=== PATIENT | female | born 1980 | race Caucasian/White ===

== ENCOUNTER 2018-08-20 17:45 | Emergency (ER) | payer OTHER ==
[~2018-08-20] VITALS: Ht 160 cm; Wt 65.0 kg
[2018-08-20] MEDS ORDERED: FAMOTIDINE 20 MG TABLET ONE (18:24)
[2018-08-20] MEDS ORDERED: FAMOTIDINE 20 MG TABLET PO ONE (18:30)
[2018-08-20] MEDS ORDERED: PLEASE ENTER ALLERGIES MC SCH (18:30)
[2018-08-20 20:00] VITALS: BP 114/71
== END 2018-08-20 20:40 | disposition home or self-care (01) ==
LOC: ED 18:47
DX: T78.2XXA Anaphylactic shock, unspecified, initial encounter (principal); T78.40XA Allergy, unspecified, initial encounter; Z90.710 Acquired absence of both cervix and uterus; Z90.49 Acquired absence of other specified parts of digestive tract; X58.XXXA Exposure to other specified factors, initial encounter
CPT/HCPCS: 93005; 99283

== ENCOUNTER → 2019-01-06 | Outpatient (CLI) | payer OTHER | END | disposition home or self-care (01) | LOC: RAD 10:11 | PROVIDERS: ATTEND Physician Assistant | DX: S70.02XA Contusion of left hip, initial encounter (principal); V89.2XXA Person injured in unspecified motor-vehicle accident, traffic, initial encounter; X58.XXXA Exposure to other specified factors, initial encounter; Y93.89 Activity, other specified; Y92.89 Other specified places as the place of occurrence of the external cause; Y99.8 Other external cause status ==

== ENCOUNTER → 2020-06-12 | Outpatient (CLI) | payer OTHER | END | disposition home or self-care (01) | LOC: CFH 07:13 | PROVIDERS: ATTEND Family Medicine | DX: N63.21 Unspecified lump in the left breast, upper outer quadrant (principal); Z85.41 Personal history of malignant neoplasm of cervix uteri | CPT/HCPCS: 76642; 77065; G0279 ==

== ENCOUNTER 2020-06-22 12:05 | Outpatient (CLI) | payer OTHER ==
[2020-06-22] MEDS ORDERED: LIDOCAINE 1%-EPI 1:100K, 20ML ONE (12:30)
[2020-06-22] MEDS ORDERED: LIDOCAINE 1%, 20ML ONE (12:30)
[2020-06-22] MEDS ORDERED: SODIUM BICARBONATE 4.2%, 5ML ONE (12:30)
== END 2020-06-22 23:59 | disposition home or self-care (01) ==
LOC: CFH 12:05
PROVIDERS: ATTEND Family Medicine
DX: N63.21 Unspecified lump in the left breast, upper outer quadrant (principal); D24.2 Benign neoplasm of left breast; Z88.0 Allergy status to penicillin; Z72.89 Other problems related to lifestyle
CPT/HCPCS: 19083; 88305; J3490; 10036

== ENCOUNTER 2020-09-15 13:35 | Emergency (ER) | payer OTHER ==
[~2020-09-15] VITALS: Ht 160 cm; Wt 67.6 kg
[2020-09-15 14:37] LABS: BASOPHILS % (AUTO) 1 % (0-1); EOSINOPHILS % (AUTO) 1 % (1-7); LYMPHOCYTES % (AUTO) 30 % (22-44); MEAN CORPUSCULAR HEMOGLOBIN 30.3 pg (27.0-34.8); MEAN CORPUSCULAR HGB CONC 33.7 g/dL (32.4-35.8); MEAN PLATELET VOLUME 6.9 fL (7.4-10.4); MONOCYTES % (AUTO) 4 % (2-9); NEUTROPHILS % (AUTO) 65 % (42-75); PLATELET COUNT 311 x10^3/uL (130-400); RED BLOOD COUNT 4.93 x10^6/uL (3.82-5.3); RED CELL DISTRIBUTION WIDTH 13.5 % (9.6-15.2)
[2020-09-15 14:47] LABS: ANION GAP 4 mmol/L (5-15); CALCIUM 9.2 mg/dL (8.5-10.1); CHLORIDE 106 mmol/L (98-107); MD NO
[2020-09-15 14:55] LABS: ALANINE AMINOTRANSFERASE 31 U/L (12-78); ALKALINE PHOSPHATASE 66 U/L (45-117); BILIRUBIN,TOTAL 0.4 mg/dL (0.2-1.0); CREATININE 0.73 mg/dL (0.55-1.02); TOTAL PROTEIN 8.4 g/dL (6.4-8.2); TROPONIN I < 0.015 ng/mL (0.000-0.045)
--- NOTE | 2020-09-15 16:26 | NUR ---
DR HARGROVE HAS UPDATED PATIENT. PATIENT TO GET A MRI.
--- NOTE | 2020-09-15 16:56 | NUR ---
PT IS IN MRI
--- NOTE | 2020-09-15 17:31 | NUR ---
pt back from MRI and resting in room. no acute distress noted. will continue to monitor.
[2020-09-15 17:45] VITALS: BP 112/90
--- NOTE | 2020-09-15 17:46 | NUR ---
DR HARGROVE HAS UPDATED PATIENT.
--- NOTE | 2020-09-15 17:59 | NUR ---
PER DR HARGROVE NO URINE NEEDED.
== END 2020-09-15 18:01 | disposition home or self-care (01) ==
LOC: ED 13:40
DX: R20.2 Paresthesia of skin (principal); R29.810 Facial weakness; R53.1 Weakness; Z90.49 Acquired absence of other specified parts of digestive tract
CPT/HCPCS: 36415; 70450; 70551; 80053; 84484; 85025; 93005; 99285